=== PATIENT | female | born 1940 | race Caucasian/White ===

== ENCOUNTER 2018-12-28 19:07 | Emergency (ER) | payer MEDICARE, OTHER ==
[~2018-12-28] VITALS: Ht 157.5 cm; Wt 81.7 kg
[~2018-12-28 19:07] MED LIST: ACET325 PO; ALPR.25 PO; ALPRAZOLAM MC; BUPR100ER PO; BUSP5 PO; CALCAVITD PO; LOSHYD PO; LOVA20 PO; LOVA40 PO; METO25ER PO; Multivitamin1 EAC1 PO; TRIHYD253A PO; VITAMIN D31000 UNIT PO; VITNEPH PO; Vitamin B Comple1 EA PO; WARF2.5 PO; WARF5 PO; XARELTO20 MG PO
[2018-12-28 19:29] LABS: Source, Urine Clean Catch
[2018-12-28 19:34] LABS: Bilirubin, Urine Neg (Neg); Blood, Urine Neg (Neg); Glucose Qualitative, Urine Neg (Neg); Ketones, Urine Neg (Neg); Leukocyte Esterase, Urine Neg (Neg); Nitrite, Urine Neg (Neg); Protein, Urine Neg (Neg); Urobilinogen, Urine NORM (Normal)
[2018-12-28 19:47] LABS: BASOPHILS ABSOLUTE AUTO 0.08 K/mm3 (0.00-0.23); BASOPHILS PERCENT AUTO 1 % (0-2); EOSINOPHILS PERCENT AUTO 3 % (0-6); Hematocrit 49.3 % (33.0-51.0); IMMATURE GRAN ABSOLUTE AUTO 0.02 K/mm3 (0.00-0.10); IMMATURE GRAN PERCENT AUTO 0 % (0-1); LYMPHOCYTES ABSOLUTE AUTO 2.68 K/mm3 (0.84-5.20); LYMPHOCYTES PERCENT AUTO 29 % (21-46); MONOCYTES ABSOLUTE AUTO 0.96 K/mm3 (0.16-1.47); MONOCYTES PERCENT AUTO 11 % (4-13); Mean Corpuscular HGB Conc 32.5 g/dL (31.5-36.5); Mean Corpuscular Volume 96 fL (80-100); Mean Platelet Volume 12.2 fL (9.1-12.4); NEUTROPHILS ABSOLUTE AUTO 5.11 K/mm3 (1.96-9.15); NEUTROPHILS PERCENT AUTO 56 % (41-73); Platelet Count 238 K/mm3 (150-400); RDW Standard Deviation 49.7 fL (35.1-46.3); Red Blood Cell Count 5.16 M/mm3 (3.80-5.20); White Blood Cell Count 9.15 K/mm3 (4.00-11.30)
[2018-12-28 19:52] LABS: Appearance, Urine Hazy (Clear); Color, Urine Yellow (P-Yellow)
[2018-12-28 19:53] LABS: Bacteria Mod /hpf; Red Blood Cells, Urine 0-2 /hpf (0-2); Squamous Epithelial Cells Many /hpf (Few); White Blood Cells, Urine 0-2 /hpf (0-5)
[2018-12-28 20:04] LABS: Bun/Creatinine Ratio 18.8 (12.0-20.0); Calcium, Blood 9.5 mg/dL (8.5-10.1); Creatinine, Blood 1.44 mg/dL (0.40-1.00); Potassium, Blood 4.1 mmol/L (3.5-5.5)
== END 2018-12-28 22:09 | disposition home or self-care (01) ==
LOC: ER 19:07
PROVIDERS: Emergency Medicine
DX: R10.9 Unspecified abdominal pain (principal); I12.9 Hypertensive chronic kidney disease with stage 1 through stage 4 chronic kidney disease, or unspecified chronic kidney disease; N18.9 Chronic kidney disease, unspecified; F32.9 Major depressive disorder, single episode, unspecified; F41.9 Anxiety disorder, unspecified; M32.9 Systemic lupus erythematosus, unspecified; Z86.718 Personal history of other venous thrombosis and embolism
CPT/HCPCS: 36415; 74176; 80048; 81001; 85025; 96374; 96375; 99284-25; A9270; J1170; J2405

== ENCOUNTER → 2020-04-22 | Outpatient (CLI) | payer MEDICARE, OTHER | END | disposition home or self-care (01) | LOC: LAB SHORT 15:30 → LAB EV 15:30 | DX: R10.31 Right lower quadrant pain (principal) | CPT/HCPCS: 87086 ==